=== PATIENT | female | born 1945 | race Two or more races ===

== ENCOUNTER 2017-11-07 09:04 | Inpatient (IN) | payer SELFPAY ==
[~2017-11-07] VITALS: Ht 154.9 cm; Wt 56.3 kg
[2017-11-07] MEDS ORDERED: ONDANSETRON HCL/PF 4 MG/2 ML VIAL IVP ONE (09:30)
[2017-11-07] MEDS ORDERED: IV NS 0.9% 1,000 ML BAG IV ONE (09:30)
[2017-11-07] MEDS ORDERED: ONDANSETRON HCL/PF 4 MG/2 ML VIAL ONE (09:30)
[2017-11-07 09:35] LABS: BASOPHILS % (AUTO) 0.1 % (0.0-2.0); EOSINOPHILS % (AUTO) 0.3 % (0.0-6.0); HEMATOCRIT 30 % (33-45); HEMOGLOBIN 9.8 g/dL (11.5-14.8); MEAN CORPUSCULAR HEMOGLOBIN 30 PG (26.0-33.0); MEAN CORPUSCULAR HGB CONC 33 g/dl (31.0-36.0); MEAN CORPUSCULAR VOLUME 93 fL (82-100); MONOCYTES # (AUTO) 0.3 /CMM (0.1-1.30); MONOCYTES % (AUTO) 3.9 % (2.0-12.0); NEUTROPHILS # (AUTO) 7.5 /CMM (1.8-8.9); NEUTROPHILS % (AUTO) 84.7 % (43.0-81.0); PLATELET COUNT (AUTO) 303 /CMM (150-450); RDW COEFFICIENT OF VARIATION 13.3 (11.5-15.0); RED BLOOD CELL COUNT(AUTO) 3.24 MIL/uL (4.0-5.2); WHITE BLOOD COUNT (AUTO) 8.8 K/uL (4.3-11.0)
[2017-11-07 09:42] LABS: CALCIUM, SERUM 8.6 mg/dL (8.5-10.1); CARBON DIOXIDE 22 mmol/L (21-32); CHLORIDE 108 mmol/L (98-107); CREATININE 3.1 mg/dL (0.6-1.3); GLUCOSE 223 mg/dL (74-106); POTASSIUM 4.2 mmol/L (3.5-5.1); SODIUM SERUM 138 mmol/L (136-145); UREA NITROGEN, BLOOD 48 mg/dL (7-18)
[2017-11-07 09:48] LABS: ALANINE AMINOTRANSFERASE 16 U/L (12-78); ALBUMIN 2.9 g/dL (3.4-5.0); ALKALINE PHOSPHATASE 82 U/L (46-116); ASPARTATE AMINOTRANSFERASE 15 U/L (15-37); BILIRUBIN,DIRECT 0.1 mg/dL (0.0-0.2); BILIRUBIN,TOTAL 0.3 mg/dL (0.2-1.0); TOTAL PROTEIN, SERUM 7.2 g/dL (6.4-8.2)
[2017-11-07 09:50] LABS: TROPONIN I < 0.017 ng/mL (0.00-0.056)
[2017-11-07 10:21] LABS: INR 0.9 (0.87-1.13)
[2017-11-07] MEDS ORDERED: INSU100V27 SQ (10:45)
[2017-11-07] MEDS ORDERED: CARV12.5 PO (10:45)
[2017-11-07] MEDS ORDERED: BLOO-668 IN (10:45)
[2017-11-07] MEDS ORDERED: ATOR10TA PO (10:45)
[2017-11-07] MEDS ORDERED: INSU100V7 SQ (10:45)
[2017-11-07] MEDS ORDERED: AMLO2.5T PO (10:45)
[2017-11-07] MEDS ORDERED: HYDROCODONE/APAP 5/325MG 1 EACH TABLET PO PRN (12:00)
[2017-11-07] MEDS ORDERED: TEMAZEPAM 15 MG CAPSULE PO PRN (12:00)
[2017-11-07] MEDS ORDERED: MORPHINE SULFATE INJ 2 MG/ML DISP.SYRIN IV PRN (12:00)
[2017-11-07] MEDS ORDERED: ONDANSETRON HCL/PF 4 MG/2 ML VIAL IVP PRN (12:00)
[2017-11-07] MEDS ORDERED: MAGNESIUM HYDROXIDE 30 ML UDC PO PRN (12:00)
[2017-11-07] MEDS ORDERED: MAG HYDROX/AL HYDROX/SIMETH 30 ML UDC PO PRN (12:00)
[2017-11-07] MEDS ORDERED: ACETAMINOPHEN 325 MG TABLET PO PRN (12:00)
[2017-11-07 12:13] VITALS: BP 151/77
[2017-11-07 12:14] VITALS: BP 151/77
[2017-11-07] MEDS: IV NS 0.9% 1,000 ML IV PRN (12:30)
[2017-11-07] MEDS: MECLIZINE HCL 12.5 MG TABLET PO PRN (13:33)
[2017-11-07] MEDS ORDERED: DEXTROSE 50%-WATER 50 ML DISP.SYRIN IV PRN (15:30)
[2017-11-07 16:00] VITALS: BP 139/68
[2017-11-07] MEDS: BLOOD SUGAR DIAGNOSTIC 1 EACH STRIP IN SCH ×2 (17:30→22:28)
[2017-11-07] MEDS: ASPIRIN EC 81 MG TABLET.DR PO SCH (17:33)
[2017-11-07] MEDS: INSULIN LISPRO/ASPART 100 UNIT/ML CARTRIDGE SQ SCH (17:35)
[2017-11-07] MEDS: INSULIN REGULAR, HUMAN 100 UNIT/ML 3 ML VIAL SQ PRN (17:41)
[2017-11-07] MEDS: ATORVASTATIN 10 MG TABLET PO SCH (17:42)
[2017-11-07 17:49] LABS: APPEARANCE,URINE CLEAR (CLEAR); BILIRUBIN,URINE NEGATIVE (NEGATIVE); BLOOD, URINE 1+ Ery/uL (NEGATIVE); COLOR,URINE YELLOW (YELLOW); KETONES,URINE NEGATIVE (NEGATIVE); LEUKOCYTE ESTERASE ,URINE NEGATIVE (NEGATIVE); NITRITE, URINE NEGATIVE (NEGATIVE); PROTEIN,URINE 3+ mg/dl (NEGATIVE); UGLUCOSE TRACE mg/dL (NEGATIVE); UROBILINOGEN,URINE 0.2 EU/dL (0.2)
[2017-11-07 17:53] LABS: BACTERIA,URINE Few /HPF (None Seen); SQUAMOUS EPITHELIAL CELL,UR Rare /HPF (None Seen); WBC,URINE 0-2 /HPF (0-3)
[2017-11-07 20:09] VITALS: BP 135/62
[2017-11-07] MEDS: INSULIN GLARGINE, 100 UNIT/ML CARTRIDGE SQ SCH (22:00)
[2017-11-07] MEDS: CARVEDILOL 12.5 MG TABLET PO SCH (22:28)
[2017-11-08] VITALS: BP 130/60
[2017-11-08 04:00] VITALS: BP 121/68
[2017-11-08] MEDS: IV NS 0.9% 1,000 ML IV PRN (04:32)
[2017-11-08 06:37] LABS: BASOPHILS % (AUTO) 0.3 % (0.0-2.0); EOSINOPHILS % (AUTO) 0.8 % (0.0-6.0); HEMATOCRIT 23 % (33-45); HEMOGLOBIN 7.6 g/dL (11.5-14.8); LYMPHOCYTES # (AUTO) 1.1 /CMM (0.8-4.8); LYMPHOCYTES % (AUTO) 14.4 % (20.0-44.0); MEAN CORPUSCULAR HEMOGLOBIN 31 PG (26.0-33.0); MEAN CORPUSCULAR HGB CONC 33 g/dl (31.0-36.0); MEAN CORPUSCULAR VOLUME 96 fL (82-100); MONOCYTES # (AUTO) 0.7 /CMM (0.1-1.30); MONOCYTES % (AUTO) 9.6 % (2.0-12.0); NEUTROPHILS # (AUTO) 5.8 /CMM (1.8-8.9); NEUTROPHILS % (AUTO) 74.9 % (43.0-81.0); PLATELET COUNT (AUTO) 215 /CMM (150-450); RDW COEFFICIENT OF VARIATION 14.4 (11.5-15.0); RED BLOOD CELL COUNT(AUTO) 2.43 MIL/uL (4.0-5.2); WHITE BLOOD COUNT (AUTO) 7.7 K/uL (4.3-11.0)
[2017-11-08 06:50] LABS: CALCIUM, SERUM 7.2 mg/dL (8.5-10.1); CARBON DIOXIDE 20 mmol/L (21-32); CHLORIDE 111 mmol/L (98-107); CREATININE 2.8 mg/dL (0.6-1.3); GLUCOSE 101 mg/dL (74-106); PHOSPHORUS 4.6 mg/dL (2.5-4.9); POTASSIUM 4.1 mmol/L (3.5-5.1); SODIUM SERUM 142 mmol/L (136-145); UREA NITROGEN, BLOOD 43 mg/dL (7-18)
[2017-11-08 07:07] LABS: CHOLESTEROL 174 mg/dL (<200); HDL CHOLESTEROL 47 mg/dL (40-60); LDL 99 mg/dL (0-99); THYROID STIMULATING HORMONE 1.514 uIU/mL (0.358-3.74); TRIGLYCERIDES 149 mg/dL (30-150)
[2017-11-08 08:00] VITALS: BP 150/65
[2017-11-08] MEDS: AMLODIPINE BESYLATE 2.5 MG TABLET PO SCH (08:18)
[2017-11-08] MEDS: BLOOD SUGAR DIAGNOSTIC 1 EACH STRIP IN SCH ×4 (08:19→21:47)
[2017-11-08] MEDS: CARVEDILOL 12.5 MG TABLET PO SCH ×2 (08:19→21:51)
[2017-11-08] MEDS: PANTOPRAZOLE 40 MG VIAL IV SCH (08:19)
[2017-11-08] MEDS: ASPIRIN EC 81 MG TABLET.DR PO SCH (08:24)
[2017-11-08] MEDS: INSULIN LISPRO/ASPART 100 UNIT/ML CARTRIDGE SQ SCH ×3 (08:24→17:25)
[2017-11-08] MEDS: MECLIZINE HCL 12.5 MG TABLET PO PRN (14:02)
[2017-11-08 16:00] VITALS: BP 131/64
[2017-11-08] MEDS: INSULIN REGULAR, HUMAN 100 UNIT/ML 3 ML VIAL SQ PRN ×2 (17:24→21:58)
[2017-11-08] MEDS: ATORVASTATIN 10 MG TABLET PO SCH (17:31)
[2017-11-08 20:00] VITALS: BP 140/63
[2017-11-08] MEDS: INSULIN GLARGINE, 100 UNIT/ML CARTRIDGE SQ SCH (22:03)
[2017-11-09 06:39] LABS: BASOPHILS % (AUTO) 0.3 % (0.0-2.0); EOSINOPHILS % (AUTO) 0.7 % (0.0-6.0); HEMATOCRIT 25 % (33-45); HEMOGLOBIN 7.9 g/dL (11.5-14.8); LYMPHOCYTES # (AUTO) 1.1 /CMM (0.8-4.8); LYMPHOCYTES % (AUTO) 13.7 % (20.0-44.0); MEAN CORPUSCULAR HEMOGLOBIN 30 PG (26.0-33.0); MEAN CORPUSCULAR HGB CONC 32 g/dl (31.0-36.0); MEAN CORPUSCULAR VOLUME 95 fL (82-100); MONOCYTES # (AUTO) 0.9 /CMM (0.1-1.30); MONOCYTES % (AUTO) 11.4 % (2.0-12.0); NEUTROPHILS # (AUTO) 5.9 /CMM (1.8-8.9); NEUTROPHILS % (AUTO) 73.9 % (43.0-81.0); PLATELET COUNT (AUTO) 245 /CMM (150-450); RDW COEFFICIENT OF VARIATION 13.9 (11.5-15.0); RED BLOOD CELL COUNT(AUTO) 2.61 MIL/uL (4.0-5.2); WHITE BLOOD COUNT (AUTO) 8.1 K/uL (4.3-11.0)
[2017-11-09] MEDS: BLOOD SUGAR DIAGNOSTIC 1 EACH STRIP IN SCH ×4 (07:02→21:32)
[2017-11-09 08:00] VITALS: BP 136/60
[2017-11-09] MEDS: PANTOPRAZOLE 40 MG VIAL IV SCH (08:29)
[2017-11-09] MEDS: CARVEDILOL 12.5 MG TABLET PO SCH ×2 (08:29→21:32)
[2017-11-09] MEDS: ASPIRIN EC 81 MG TABLET.DR PO SCH (08:30)
[2017-11-09] MEDS: AMLODIPINE BESYLATE 2.5 MG TABLET PO SCH (08:30)
[2017-11-09] MEDS: INSULIN REGULAR, HUMAN 100 UNIT/ML 3 ML VIAL SQ PRN ×4 (08:32→21:52)
[2017-11-09] MEDS: INSULIN LISPRO/ASPART 100 UNIT/ML CARTRIDGE SQ SCH ×3 (08:32→17:33)
[2017-11-09 16:00] VITALS: BP 151/58
[2017-11-09] MEDS: ATORVASTATIN 10 MG TABLET PO SCH (17:29)
[2017-11-09] MEDS: MECLIZINE HCL 12.5 MG TABLET PO PRN (17:36)
[2017-11-09 20:00] VITALS: BP 137/62
[2017-11-09 21:30] VITALS: BP 132/94
[2017-11-09] MEDS: INSULIN GLARGINE, 100 UNIT/ML CARTRIDGE SQ SCH (21:48)
[2017-11-10] MEDS: BLOOD SUGAR DIAGNOSTIC 1 EACH STRIP IN SCH ×2 (06:25→11:56)
[2017-11-10] MEDS: INSULIN REGULAR, HUMAN 100 UNIT/ML 3 ML VIAL SQ PRN ×2 (06:29→12:04)
[2017-11-10 08:00] VITALS: BP 138/71
[2017-11-10] MEDS: AMLODIPINE BESYLATE 2.5 MG TABLET PO SCH (09:14)
[2017-11-10] MEDS: CARVEDILOL 12.5 MG TABLET PO SCH (09:14)
[2017-11-10] MEDS: PANTOPRAZOLE 40 MG VIAL IV SCH (09:14)
[2017-11-10] MEDS: ASPIRIN EC 81 MG TABLET.DR PO SCH (09:14)
[2017-11-10] MEDS: INSULIN LISPRO/ASPART 100 UNIT/ML CARTRIDGE SQ SCH ×2 (09:19→12:03)
[2017-11-10 16:00] VITALS: BP 138/71
== END 2017-11-10 16:24 | disposition home or self-care (01) | DRG 73 ==
LOC: ER 09:05 → TELE 11:09 → MED 11-08 18:05
PROVIDERS: ADMIT Nurse Practitioner Acute Care; ATTEND Nurse Practitioner Acute Care
DX: G90.8 Other disorders of autonomic nervous system (principal); N17.0 Acute kidney failure with tubular necrosis; E44.0 Moderate protein-calorie malnutrition; Z68.1 Body mass index [BMI] 19.9 or less, adult; E44.1 Mild protein-calorie malnutrition; E11.22 Type 2 diabetes mellitus with diabetic chronic kidney disease; I12.9 Hypertensive chronic kidney disease with stage 1 through stage 4 chronic kidney disease, or unspecified chronic kidney disease; N18.9 Chronic kidney disease, unspecified; D63.8 Anemia in other chronic diseases classified elsewhere; I10 Essential (primary) hypertension; E11.65 Type 2 diabetes mellitus with hyperglycemia; Z79.4 Long term (current) use of insulin; Z86.73 Personal history of transient ischemic attack (TIA), and cerebral infarction without residual deficits; E78.5 Hyperlipidemia, unspecified; H91.93 Unspecified hearing loss, bilateral; I67.2 Cerebral atherosclerosis; K31.84 Gastroparesis; R42 Dizziness and giddiness
CPT/HCPCS: 36415; 70450-TC; 70551-TC; 71045-TC; 74018; 80048-TC; 80061-TC; 80076-TC; 81000-TC; 82962-TC; 83605-TC; 83735-TC; 84100-TC; 84443-TC; 84484-TC; 85025-TC; 85730-TC; 87040-TC; 87086-TC; 93307-TC; A4606; C9113; J1815; J2405; J7030; J8597; Z7610

== ENCOUNTER 2020-06-15 11:11 | Emergency (ER) | payer MEDICAID ==
[~2020-06-15] VITALS: Ht 162.6 cm; Wt 52.2 kg
[~2020-06-15 11:11] MED LIST: AMLO2.5T4 PO; ATOR10TA PO; BLOO-668 IN; CARV12.5 PO; INSU100V27 SQ; INSU100V7 SQ
--- NOTE | 2020-06-15 11:15 | NUR ---
PT BIBRA FROM HOME C/O R SIDED RIB AND HIP AREA PAIN. PER EMS REPORT, PATIENT WAS FOUND IN THE BATHROOM FLOOR, SHE WAS TRYING GTO URINATE AND FELL. NO HEAD INJURY ENDORSED. PT GOWNED AND PLACED ON MONITOR. AWAITING MD WALTERS.
--- NOTE | 2020-06-15 11:16 | NUR ---
DR LUNA AT BEDSIDE FOR EVAL.
--- NOTE | 2020-06-15 11:25 | NUR ---
PT TO RADIOLOGY FOR LUMBAR SPINE CT AND RIB XRAY VIA [facility].
[2020-06-15] MEDS: ACETAMINOPHEN ES 500 MG TABLET PO ONE ×2 (11:30→12:57)
[2020-06-15] MEDS ORDERED: ALLO100T PO (11:40)
[2020-06-15] MEDS ORDERED: CLON0.1T PO (11:40)
[2020-06-15] MEDS ORDERED: NIFE20CA PO (11:40)
[2020-06-15] MEDS ORDERED: SEVE800T8 PO (11:40)
[2020-06-15] MEDS ORDERED: FURO-144 PO (11:40)
--- NOTE | 2020-06-15 12:18 | NUR ---
PT TO RADIOLOGY FOR CT CHEST AND ABDOMEN VIA [facility].
[2020-06-15 12:48] LABS: BASOPHILS # (AUTO) 0.3 /CMM (0.0-0.2); BASOPHILS % (AUTO) 2.4 % (0.0-2.0); EOSINOPHILS % (AUTO) 1.8 % (0.0-6.0); HEMATOCRIT 32 % (33-45); HEMOGLOBIN 10.4 g/dL (11.5-14.8); LYMPHOCYTES # (AUTO) 0.5 /CMM (0.8-4.8); LYMPHOCYTES % (AUTO) 4.5 % (20.0-44.0); MEAN CORPUSCULAR HGB CONC 33 g/dl (31.0-36.0); MEAN CORPUSCULAR VOLUME 104 fL (82-100); MONOCYTES # (AUTO) 0.4 /CMM (0.1-1.30); MONOCYTES % (AUTO) 3.8 % (2.0-12.0); NEUTROPHILS # (AUTO) 9.1 /CMM (1.8-8.9); NEUTROPHILS % (AUTO) 87.5 % (43.0-81.0); PLATELET COUNT (AUTO) 275 /CMM (150-450); RED BLOOD CELL COUNT(AUTO) 3.04 MIL/uL (4.0-5.2); WHITE BLOOD COUNT (AUTO) 10.4 K/uL (4.3-11.0)
[2020-06-15] MEDS ORDERED: ACETAMINOPHEN ES 500 MG TABLET ONE (12:52)
--- NOTE | 2020-06-15 12:55 | NUR ---
FAMILY NOW OK TO GIVE PATIENT TYLENOL. ERMD AWARE.
--- NOTE | 2020-06-15 13:09 | NUR ---
CALLED DR. OLMSTEAD 626-ON [address] [place] Addendum: 06/15/20 at 1310 by [email or web address] [phone]
[2020-06-15] MEDS ORDERED: HYDR-3972 PO (13:17)
[2020-06-15 13:32] LABS: CALCIUM, SERUM 7.5 mg/dL (8.5-10.1); CARBON DIOXIDE 21 mmol/L (21-32); CHLORIDE 96 mmol/L (98-107); GLUCOSE 302 mg/dL (74-106); POTASSIUM 3.6 mmol/L (3.5-5.1); SODIUM SERUM 133 mmol/L (136-145); UREA NITROGEN, BLOOD 66 mg/dL (7-18)
[2020-06-15 13:36] LABS: CREATININE 8.1 mg/dL (0.6-1.3)
--- NOTE | 2020-06-15 13:41 | NUR ---
Note jessy in ED - 06/15/20 at 1344 by BENJAMIN Patient discharged to home in stable condition. Written and verbal after care instructions given. Patient verbalizes understanding of instruction.IV removed. Catheter intact and site benign. Pressure and 4x4 applied to site. No bleeding noted.
--- NOTE | 2020-06-15 13:44 | NUR ---
Patient discharged to home in stable condition. Written and verbal after care instructions given. Family verbalizes understanding of instruction.IV removed. Catheter intact and site benign. Pressure and 4x4 applied to site. No bleeding noted.
[2020-06-15 13:46] VITALS: BP 154/88
== END 2020-06-15 13:46 | disposition home or self-care (01) ==
LOC: ER 11:14
DX: S22.31XA Fracture of one rib, right side, initial encounter for closed fracture (principal); K66.8 Other specified disorders of peritoneum; I12.0 Hypertensive chronic kidney disease with stage 5 chronic kidney disease or end stage renal disease; N18.6 End stage renal disease; Z99.2 Dependence on renal dialysis; Z88.0 Allergy status to penicillin; Z79.899 Other long term (current) drug therapy; W18.39XA Other fall on same level, initial encounter; Y93.89 Activity, other specified; Y92.89 Other specified places as the place of occurrence of the external cause; Y99.8 Other external cause status
CPT/HCPCS: 36415; 71100-TC; 71250-TC; 72131-TC; 72170-TC; 80048-TC; 85025-TC; 85730-TC

== ENCOUNTER 2023-10-22 09:11 | Emergency (ER) | payer MEDICARE, OTHER ==
[~2023-10-22] VITALS: Ht 142.2 cm; Wt 46.7 kg
[~2023-10-22 09:11] MED LIST changes: +ALLO100T PO; -AMLO2.5T4 PO; -ATOR10TA PO; -CARV12.5 PO; +CLON0.1T PO; +FURO-144 PO; +HYDR-3972 PO; +NIFE20CA PO; +SEVE800T8 PO
[2023-10-22] MEDS: IV NS 0.9% 500 ML BAG IV ONE (09:56)
[2023-10-22 10:16] LABS: BASOPHILS % (AUTO) 0.7 % (0.0-2.0); EOSINOPHILS # (AUTO) 0.1 K/uL (0.0-0.7); EOSINOPHILS % (AUTO) 2.8 % (0.0-6.0); LYMPHOCYTES % (AUTO) 19.1 % (20.0-44.0); MEAN CORPUSCULAR HEMOGLOBIN 35 PG (26.0-33.0); MEAN CORPUSCULAR HGB CONC 32 g/dl (31.0-36.0); MEAN CORPUSCULAR VOLUME 110 fL (82-100); MONOCYTES # (AUTO) 0.5 K/uL (0.1-1.30); MONOCYTES % (AUTO) 9.4 % (2.0-12.0); NEUTROPHILS # (AUTO) 3.4 K/uL (1.8-8.9); PLATELET COUNT (AUTO) 159 K/uL (150-450); RED CELL DISTRIBUTION WIDTH 17.7 % (11.5-15.0)
[2023-10-22 10:29] LABS: ALANINE AMINOTRANSFERASE 34 U/L (12-78); ALBUMIN 2.6 g/dL (3.4-5.0); ALKALINE PHOSPHATASE 119 U/L (46-116); ASPARTATE AMINOTRANSFERASE 47 U/L (15-37); BILIRUBIN,DIRECT 0.1 mg/dL (0.0-0.2); BILIRUBIN,TOTAL 0.5 mg/dL (0.2-1.0); CALCIUM, SERUM 8.6 mg/dL (8.5-10.1); CARBON DIOXIDE 24 mmol/L (21-32); CHLORIDE 101 mmol/L (98-107); GLUCOSE 113 mg/dL (74-106); LIPASE 48 U/L (16-77); POTASSIUM 4.2 mmol/L (3.5-5.1); SODIUM SERUM 139 mmol/L (136-145); TOTAL PROTEIN, SERUM 7.4 g/dL (6.4-8.2); UREA NITROGEN, BLOOD 73 mg/dL (7-18)
[2023-10-22 10:32] LABS: CREATININE 14.5 mg/dL (0.6-1.3)
[2023-10-22 10:34] LABS: HEMATOCRIT 23 % (33-45); HEMOGLOBIN 7.4 g/dL (11.5-14.8)
[2023-10-22] MEDS ORDERED: METR500T PO (11:44)
[2023-10-22] MEDS ORDERED: CIPR-262 PO (11:44)
[2023-10-22 11:47] LABS: ANISOCYTOSIS 1+; BASOPHILS % (MANUAL) 0 % (0.0-2.0); EOSINOPHILS % (MANUAL) 1 % (0-4); LYMPHOCYTES % (MANUAL) 18 % (16-48); MONOCYTES % (MANUAL) 7 % (0-11.0); NEUTROPHILS % (MANUAL) 74 (42-76); PLATELET ESTIMATE ADEQUATE
[2023-10-22 12:54] VITALS: BP 189/91; TEMP 98.5; O2SAT 98
[2023-10-23] MEDS ORDERED: ASPI-1169 PO (08:35)
[2023-10-23] MEDS ORDERED: CEFD300C3 PO (08:35)
[2023-10-23] MEDS ORDERED: SEVE800T8 PO (08:35)
[2023-10-23] MEDS ORDERED: ATOR10TA PO (08:35)
[2023-10-23] MEDS ORDERED: LOSA25TA27 PO (08:35)
[2023-10-23] MEDS ORDERED: GENTAMICIN CREAM TP (08:35)
[2023-10-23] MEDS ORDERED: INSU100I14 SQ ×2 (08:35)
[2023-10-23] MEDS ORDERED: FOLI0.8T2 PO (08:35)
[2023-10-23] MEDS ORDERED: INSU100I4 SQ (08:35)
[2023-10-23] MEDS ORDERED: COLC0.6C3 PO (08:35)
[2023-10-23] MEDS ORDERED: ERGO500093 PO (08:35)
[2023-10-23] MEDS ORDERED: NIFE30TA2 PO (08:35)
[2023-10-23] MEDS ORDERED: LEVO75TA PO (08:35)
== END 2023-10-22 12:55 | disposition home or self-care (01) ==
LOC: ER 09:18
DX: K52.9 Noninfective gastroenteritis and colitis, unspecified (principal); Z88.0 Allergy status to penicillin; Z99.2 Dependence on renal dialysis
CPT/HCPCS: 99284; 74176; 93005; 85025; 80048; 83690; 80076; 36415; 85007; J7040

== ENCOUNTER 2023-10-22 23:08 | Inpatient (IN) | payer MEDICARE, OTHER ==
[~2023-10-22] VITALS: Ht 180.3 cm; Wt 53.3 kg
[~2023-10-22 23:08] MED LIST changes: +CIPR-262 PO; +METR500T PO
[2023-10-23] MEDS: CIPROFLOXACIN IV RTU 400 MG in PREMIX 1 EA IV SCH
[2023-10-23 00:10] LABS: BASOPHILS % (AUTO) 0.5 % (0.0-2.0); EOSINOPHILS # (AUTO) 0.1 K/uL (0.0-0.7); EOSINOPHILS % (AUTO) 1.8 % (0.0-6.0); HEMATOCRIT 30 % (33-45); LYMPHOCYTES # (AUTO) 0.9 K/uL (0.8-4.8); LYMPHOCYTES % (AUTO) 13.8 % (20.0-44.0); MEAN CORPUSCULAR HEMOGLOBIN 35 PG (26.0-33.0); MEAN CORPUSCULAR HGB CONC 33 g/dl (31.0-36.0); MEAN CORPUSCULAR VOLUME 107 fL (82-100); MONOCYTES # (AUTO) 0.5 K/uL (0.1-1.30); NEUTROPHILS % (AUTO) 75.9 % (43.0-81.0); PLATELET COUNT (AUTO) 206 K/uL (150-450); RED BLOOD CELL COUNT(AUTO) 2.83 MIL/uL (4.0-5.2); RED CELL DISTRIBUTION WIDTH 17.4 % (11.5-15.0); WHITE BLOOD COUNT (AUTO) 6.7 K/uL (4.3-11.0)
[2023-10-23 00:19] LABS: CALCIUM, SERUM 8.3 mg/dL (8.5-10.1); CARBON DIOXIDE 23 mmol/L (21-32); CHLORIDE 98 mmol/L (98-107); GLUCOSE 180 mg/dL (74-106); POTASSIUM 4.5 mmol/L (3.5-5.1); SODIUM SERUM 138 mmol/L (136-145); UREA NITROGEN, BLOOD 75 mg/dL (7-18)
[2023-10-23 00:20] LABS: CREATININE 15.3 mg/dL (0.6-1.3)
[2023-10-23 00:22] LABS: MAGNESIUM 1.8 mg/dL (1.8-2.4); PHOSPHORUS 5.5 mg/dL (2.5-4.9)
[2023-10-23] MEDS ORDERED: ONDANSETRON HCL/PF 4 MG/2 ML VIAL ONE ×2 (00:22→01:52)
[2023-10-23] MEDS ORDERED: METRONIDAZOLE 500MG/ NS 100ML 100 ML IV ONE (00:22)
[2023-10-23] MEDS ORDERED: CIPROFLOXACIN IV RTU 200 ML IV ONE (00:22)
[2023-10-23 00:27] LABS: ALANINE AMINOTRANSFERASE 38 U/L (12-78); ALBUMIN 2.6 g/dL (3.4-5.0); ALKALINE PHOSPHATASE 120 U/L (46-116); ASPARTATE AMINOTRANSFERASE 60 U/L (15-37); BILIRUBIN,DIRECT 0.1 mg/dL (0.0-0.2); BILIRUBIN,TOTAL 0.5 mg/dL (0.2-1.0); LIPASE 38 U/L (16-77); TOTAL PROTEIN, SERUM 7.4 g/dL (6.4-8.2)
[2023-10-23] MEDS: ONDANSETRON HCL/PF 4 MG/2 ML VIAL IVP ONE (00:28)
[2023-10-23] MEDS: FLAGYL/NS RTU 500 MG/100 ML PIGGYBACK IV ONE (00:29)
[2023-10-23] MEDS ORDERED: DEXTROSE 50%-WATER 50 ML DISP.SYRIN IV PRN (00:30)
[2023-10-23] MEDS ORDERED: MAG HYDROX/AL HYDROX/SIMETH 30 ML UDC PO PRN (00:30)
[2023-10-23] MEDS ORDERED: ONDANSETRON HCL/PF 4 MG/2 ML VIAL IVP PRN (00:30)
[2023-10-23] MEDS ORDERED: ACETAMINOPHEN 325 MG TABLET PO PRN (00:30)
[2023-10-23] MEDS ORDERED: CIPROFLOXACIN IV RTU 400 MG in PREMIX 1 EA IV SCH (00:30)
[2023-10-23] MEDS ORDERED: MAGNESIUM HYDROXIDE 30 ML UDC PO PRN (00:30)
[2023-10-23] MEDS: ONDANSETRON HCL/PF - ER 4 MG/2 ML VIAL IV ONE (01:57)
[2023-10-23] MEDS: hydrALAZINE HCL IV 20 MG VIAL IV PRN (03:52)
[2023-10-23 04:00] VITALS: BP 165/71; TEMP 98.1; O2SAT 98
[2023-10-23] MEDS: METOCLOPRAMIDE HCL 10 MG/2 ML VIAL IV PRN (05:59)
[2023-10-23] MEDS: BLOOD SUGAR DIAGNOSTIC 1 EACH STRIP IN SCH (07:49)
[2023-10-23] MEDS: INSULIN REGULAR, HUMAN 100 UNIT/ML 3 ML VIAL SQ PRN (07:50)
[2023-10-23 08:00] VITALS: BP 161/100; TEMP 98.5; O2SAT 97
[2023-10-23] MEDS ORDERED: [UNRECOGNIZED DRUG - MIXTURE] IV SCH (08:00)
[2023-10-23] MEDS ORDERED: METRONIDAZOLE 500MG/ NS 100ML 500 MG in PREMIX 1 EA IV SCH (08:00)
[2023-10-23] MEDS: SEVELAMER CARBONATE 800 MG TABLET PO SCH (08:20)
[2023-10-23] MEDS: METRONIDAZOLE 500MG/ NS 100ML 500 MG in PREMIX 1 EA IV SCH (08:20)
[2023-10-23] MEDS ORDERED: NIFE30TA2 PO (08:35)
[2023-10-23] MEDS ORDERED: ATOR10TA PO (08:35)
[2023-10-23] MEDS ORDERED: ERGO500093 PO (08:35)
[2023-10-23] MEDS ORDERED: LOSA25TA27 PO (08:35)
[2023-10-23] MEDS ORDERED: LEVO75TA PO (08:35)
[2023-10-23] MEDS ORDERED: SEVE800T8 PO (08:35)
[2023-10-23] MEDS ORDERED: COLC0.6C3 PO (08:35)
[2023-10-23] MEDS ORDERED: ASPI-1169 PO (08:35)
[2023-10-23] MEDS ORDERED: FOLI0.8T2 PO (08:35)
[2023-10-23] MEDS ORDERED: CEFD300C3 PO (08:35)
[2023-10-23] MEDS ORDERED: INSU100I4 SQ (08:35)
[2023-10-23] MEDS ORDERED: INSU100I14 SQ ×2 (08:35)
[2023-10-23] MEDS ORDERED: GENTAMICIN CREAM TP (08:35)
[2023-10-23] MEDS: NIFEdipine XL (30MG) 30 MG TAB PO SCH (08:59)
[2023-10-23] MEDS: POLYETHYLENE GLYCOL 3350 17 GM POWD.PACK PO ONE (08:59)
[2023-10-23] MEDS: FUROSEMIDE 40 MG TABLET PO SCH (08:59)
[2023-10-23] MEDS ORDERED: ALLOPURINOL 100 MG TABLET PO SCH (09:00)
[2023-10-23 12:00] VITALS: BP 192/89; TEMP 98.4; O2SAT 97
[2023-10-23] MEDS: CLONIDINE HCL 0.1 MG TABLET PO PRN (13:08)
[2023-10-23 16:00] VITALS: BP 124/66; TEMP 97.5; O2SAT 98
[2023-10-23] MEDS: HYDROCODONE/APAP 5/325MG TABLET PO PRN (16:58)
[2023-10-23 20:00] VITALS: BP 130/62; TEMP 97.9; O2SAT 99
[2023-10-24] VITALS: BP 138/66; TEMP 97.7; O2SAT 95
[2023-10-24 04:00] VITALS: BP 153/75; TEMP 98.1; O2SAT 97
[2023-10-24 07:02] LABS: BASOPHILS % (AUTO) 0.3 % (0.0-2.0); EOSINOPHILS # (AUTO) 0.1 K/uL (0.0-0.7); EOSINOPHILS % (AUTO) 1.7 % (0.0-6.0); HEMATOCRIT 27 % (33-45); LYMPHOCYTES # (AUTO) 0.6 K/uL (0.8-4.8); LYMPHOCYTES % (AUTO) 11.9 % (20.0-44.0); MEAN CORPUSCULAR HEMOGLOBIN 35 PG (26.0-33.0); MEAN CORPUSCULAR HGB CONC 33 g/dl (31.0-36.0); MEAN CORPUSCULAR VOLUME 106 fL (82-100); MONOCYTES # (AUTO) 0.6 K/uL (0.1-1.30); MONOCYTES % (AUTO) 12.4 % (2.0-12.0); NEUTROPHILS # (AUTO) 3.6 K/uL (1.8-8.9); NEUTROPHILS % (AUTO) 73.7 % (43.0-81.0); PLATELET COUNT (AUTO) 172 K/uL (150-450); RED BLOOD CELL COUNT(AUTO) 2.56 MIL/uL (4.0-5.2); RED CELL DISTRIBUTION WIDTH 17.4 % (11.5-15.0); WHITE BLOOD COUNT (AUTO) 4.9 K/uL (4.3-11.0)
[2023-10-24 07:39] LABS: CARBON DIOXIDE 23 mmol/L (21-32); CHLORIDE 98 mmol/L (98-107); GLUCOSE 185 mg/dL (74-106); MAGNESIUM 1.8 mg/dL (1.8-2.4); PHOSPHORUS 4.7 mg/dL (2.5-4.9); POTASSIUM 4.4 mmol/L (3.5-5.1); SODIUM SERUM 136 mmol/L (136-145); UREA NITROGEN, BLOOD 32 mg/dL (7-18)
[2023-10-24 07:46] LABS: CREATININE 8.1 mg/dL (0.6-1.3)
[2023-10-24 08:07] LABS: BASOPHILS % (MANUAL) 0 % (0.0-2.0); EOSINOPHILS % (MANUAL) 4 % (0-4); LYMPHOCYTES % (MANUAL) 13 % (16-48); MONOCYTES % (MANUAL) 10 % (0-11.0); NEUTROPHILS % (MANUAL) 73 (42-76)
[2023-10-24 08:08] LABS: PLATELET ESTIMATE ADEQUATE
[2023-10-24 10:50] VITALS: BP 155/63; TEMP 98.1; O2SAT 97
[2023-10-24 12:00] VITALS: BP 171/81; TEMP 98.6; O2SAT 97
[2023-10-24] MEDS ORDERED: PIPERACILLIN /TAZOBACTAM 2.25 G in IV D5W 50 ML IV SCH (14:00)
[2023-10-24 16:00] VITALS: BP 138/68; TEMP 98.6; O2SAT 98
[2023-10-24] MEDS: CLINDAMYCIN 600 MG in IV NS 0.9% 46 ML IV SCH (16:52)
[2023-10-24 20:00] VITALS: BP 166/76; TEMP 97.7; O2SAT 99
[2023-10-25] VITALS: BP 143/65; TEMP 98.1; O2SAT 99
[2023-10-25 04:00] VITALS: BP 140/72; TEMP 98.5; O2SAT 99
[2023-10-25 06:36] LABS: BASOPHILS % (AUTO) 0.3 % (0.0-2.0); EOSINOPHILS # (AUTO) 0.1 K/uL (0.0-0.7); EOSINOPHILS % (AUTO) 1.6 % (0.0-6.0); HEMATOCRIT 29 % (33-45); HEMOGLOBIN 9.4 g/dL (11.5-14.8); LYMPHOCYTES # (AUTO) 0.9 K/uL (0.8-4.8); LYMPHOCYTES % (AUTO) 14.7 % (20.0-44.0); MEAN CORPUSCULAR HEMOGLOBIN 35 PG (26.0-33.0); MEAN CORPUSCULAR HGB CONC 33 g/dl (31.0-36.0); MEAN CORPUSCULAR VOLUME 107 fL (82-100); MONOCYTES # (AUTO) 0.7 K/uL (0.1-1.30); MONOCYTES % (AUTO) 11.4 % (2.0-12.0); NEUTROPHILS # (AUTO) 4.6 K/uL (1.8-8.9); PLATELET COUNT (AUTO) 186 K/uL (150-450); RED BLOOD CELL COUNT(AUTO) 2.67 MIL/uL (4.0-5.2); WHITE BLOOD COUNT (AUTO) 6.4 K/uL (4.3-11.0)
[2023-10-25 06:52] LABS: MAGNESIUM 1.6 mg/dL (1.8-2.4); PHOSPHORUS 6.1 mg/dL (2.5-4.9)
[2023-10-25 08:00] VITALS: BP 134/69; TEMP 98.4; O2SAT 97
[2023-10-25 08:16] LABS: CALCIUM, SERUM 8.6 mg/dL (8.5-10.1); CARBON DIOXIDE 22 mmol/L (21-32); CHLORIDE 96 mmol/L (98-107); GLUCOSE 153 mg/dL (74-106); POTASSIUM 4.4 mmol/L (3.5-5.1); SODIUM SERUM 134 mmol/L (136-145); UREA NITROGEN, BLOOD 39 mg/dL (7-18)
[2023-10-25 08:17] LABS: CREATININE 9.9 mg/dL (0.6-1.3)
[2023-10-25 08:21] LABS: MAGNESIUM 1.8 mg/dL (1.8-2.4); PHOSPHORUS 6.2 mg/dL (2.5-4.9)
[2023-10-25 12:00] VITALS: BP 138/65; TEMP 98.2; O2SAT 98
[2023-10-25 16:00] VITALS: BP 153/72; TEMP 98.4; O2SAT 95
[2023-10-25 20:00] VITALS: BP 160/80; TEMP 98.1; O2SAT 98
[2023-10-26] VITALS: BP 149/77; TEMP 98.1; O2SAT 99
[2023-10-26 04:00] VITALS: BP 146/72; TEMP 98.1; O2SAT 97
[2023-10-26 08:00] VITALS: BP 165/78; TEMP 97.8; O2SAT 98
[2023-10-26 09:31] LABS: BASOPHILS % (AUTO) 0.3 % (0.0-2.0); EOSINOPHILS # (AUTO) 0.1 K/uL (0.0-0.7); EOSINOPHILS % (AUTO) 1.8 % (0.0-6.0); HEMATOCRIT 31 % (33-45); HEMOGLOBIN 10.2 g/dL (11.5-14.8); LYMPHOCYTES # (AUTO) 0.8 K/uL (0.8-4.8); MEAN CORPUSCULAR HEMOGLOBIN 35 PG (26.0-33.0); MEAN CORPUSCULAR HGB CONC 33 g/dl (31.0-36.0); MEAN CORPUSCULAR VOLUME 108 fL (82-100); MONOCYTES # (AUTO) 0.8 K/uL (0.1-1.30); MONOCYTES % (AUTO) 13.7 % (2.0-12.0); NEUTROPHILS # (AUTO) 4.1 K/uL (1.8-8.9); NEUTROPHILS % (AUTO) 70.2 % (43.0-81.0); PLATELET COUNT (AUTO) 208 K/uL (150-450); RED CELL DISTRIBUTION WIDTH 17.9 % (11.5-15.0); WHITE BLOOD COUNT (AUTO) 5.9 K/uL (4.3-11.0)
[2023-10-26 09:54] LABS: CALCIUM, SERUM 8.6 mg/dL (8.5-10.1); CARBON DIOXIDE 25 mmol/L (21-32); CHLORIDE 95 mmol/L (98-107); CREATININE 6.5 mg/dL (0.6-1.3); GLUCOSE 88 mg/dL (74-106); MAGNESIUM 1.8 mg/dL (1.8-2.4); PHOSPHORUS 5.5 mg/dL (2.5-4.9); POTASSIUM 3.7 mmol/L (3.5-5.1); SODIUM SERUM 137 mmol/L (136-145); UREA NITROGEN, BLOOD 22 mg/dL (7-18)
[2023-10-26 12:00] VITALS: BP 178/86; TEMP 97.9; O2SAT 97
[2023-10-26 16:00] VITALS: BP 150/76; TEMP 97.7; O2SAT 97
[2023-10-26 20:00] VITALS: BP 144/70; TEMP 98.1; O2SAT 98
[2023-10-27] VITALS: BP 138/66; TEMP 97.6; O2SAT 95
[2023-10-27 04:00] VITALS: BP 136/75; TEMP 98.3; O2SAT 96
[2023-10-27 07:52] LABS: BASOPHILS % (AUTO) 0.4 % (0.0-2.0); EOSINOPHILS # (AUTO) 0.1 K/uL (0.0-0.7); HEMATOCRIT 30 % (33-45); HEMOGLOBIN 9.9 g/dL (11.5-14.8); LYMPHOCYTES # (AUTO) 1.5 K/uL (0.8-4.8); LYMPHOCYTES % (AUTO) 19.7 % (20.0-44.0); MEAN CORPUSCULAR HEMOGLOBIN 36 PG (26.0-33.0); MEAN CORPUSCULAR HGB CONC 33 g/dl (31.0-36.0); MEAN CORPUSCULAR VOLUME 107 fL (82-100); MONOCYTES # (AUTO) 1.3 K/uL (0.1-1.30); MONOCYTES % (AUTO) 18.3 % (2.0-12.0); NEUTROPHILS # (AUTO) 4.4 K/uL (1.8-8.9); NEUTROPHILS % (AUTO) 59.6 % (43.0-81.0); PLATELET COUNT (AUTO) 195 K/uL (150-450); RED BLOOD CELL COUNT(AUTO) 2.79 MIL/uL (4.0-5.2); RED CELL DISTRIBUTION WIDTH 17.5 % (11.5-15.0); WHITE BLOOD COUNT (AUTO) 7.4 K/uL (4.3-11.0)
[2023-10-27 08:00] VITALS: BP 136/65; TEMP 98.4; O2SAT 97
[2023-10-27 08:14] LABS: CALCIUM, SERUM 8.7 mg/dL (8.5-10.1); CARBON DIOXIDE 23 mmol/L (21-32); CHLORIDE 97 mmol/L (98-107); GLUCOSE 131 mg/dL (74-106); MAGNESIUM 2.3 mg/dL (1.8-2.4); PHOSPHORUS 7.8 mg/dL (2.5-4.9); POTASSIUM 4.2 mmol/L (3.5-5.1); SODIUM SERUM 137 mmol/L (136-145); UREA NITROGEN, BLOOD 39 mg/dL (7-18)
[2023-10-27 08:22] LABS: CREATININE 8.2 mg/dL (0.6-1.3)
[2023-10-27 12:00] VITALS: BP 139/73; TEMP 98.2; O2SAT 99
[2023-10-27 16:00] VITALS: BP 130/66; TEMP 98.4; O2SAT 99
[2023-10-27 20:00] VITALS: BP 134/66; TEMP 98.4; O2SAT 99
[2023-10-28] VITALS: BP 140/76; TEMP 98.6; O2SAT 99
[2023-10-28 04:00] VITALS: BP 134/65; TEMP 98.3; O2SAT 99
[2023-10-28 06:48] LABS: BASOPHILS % (AUTO) 0.3 % (0.0-2.0); EOSINOPHILS # (AUTO) 0.1 K/uL (0.0-0.7); EOSINOPHILS % (AUTO) 1.6 % (0.0-6.0); HEMATOCRIT 29 % (33-45); HEMOGLOBIN 9.5 g/dL (11.5-14.8); LYMPHOCYTES # (AUTO) 1.4 K/uL (0.8-4.8); LYMPHOCYTES % (AUTO) 16.8 % (20.0-44.0); MEAN CORPUSCULAR HEMOGLOBIN 35 PG (26.0-33.0); MEAN CORPUSCULAR HGB CONC 33 g/dl (31.0-36.0); MEAN CORPUSCULAR VOLUME 107 fL (82-100); MONOCYTES # (AUTO) 1.3 K/uL (0.1-1.30); MONOCYTES % (AUTO) 15.9 % (2.0-12.0); NEUTROPHILS # (AUTO) 5.3 K/uL (1.8-8.9); NEUTROPHILS % (AUTO) 65.4 % (43.0-81.0); PLATELET COUNT (AUTO) 196 K/uL (150-450); RED BLOOD CELL COUNT(AUTO) 2.68 MIL/uL (4.0-5.2); WHITE BLOOD COUNT (AUTO) 8.2 K/uL (4.3-11.0)
[2023-10-28 06:58] LABS: CARBON DIOXIDE 20 mmol/L (21-32); CHLORIDE 97 mmol/L (98-107); GLUCOSE 168 mg/dL (74-106); MAGNESIUM 2.4 mg/dL (1.8-2.4); PHOSPHORUS 7.9 mg/dL (2.5-4.9); POTASSIUM 4.5 mmol/L (3.5-5.1); SODIUM SERUM 137 mmol/L (136-145); UREA NITROGEN, BLOOD 48 mg/dL (7-18)
[2023-10-28 06:59] LABS: CREATININE 9.5 mg/dL (0.6-1.3)
[2023-10-28 07:16] LABS: IRON, SERUM 45 ug/dl (50-175); TOTAL IRON BINDING CAPACITY 149 ug/dl (250-450)
[2023-10-28 07:25] LABS: FERRITIN 875 ng/mL (8-388)
[2023-10-28 08:00] VITALS: BP 148/69; TEMP 98.2; O2SAT 93
[2023-10-28 09:06] LABS: ANISOCYTOSIS 1+; BASOPHILS % (MANUAL) 0 % (0.0-2.0); EOSINOPHILS % (MANUAL) 3 % (0-4); LYMPHOCYTES % (MANUAL) 19 % (16-48); MONOCYTES % (MANUAL) 14 % (0-11.0); NEUTROPHILS % (MANUAL) 64 (42-76); PLATELET ESTIMATE ADEQUATE
[2023-10-28] MEDS ORDERED: CLIN300C3 PO (11:03)
[2023-10-28 12:00] VITALS: BP 155/70; TEMP 98; O2SAT 93
[2023-10-28 16:00] VITALS: BP 155/70; TEMP 98; O2SAT 94
[2023-10-28 20:00] VITALS: BP 148/75; TEMP 98.8; O2SAT 98
[2023-10-28] MEDS: CLINDAMYCIN HCL 150 MG CAPSULE PO SCH (21:07)
[2023-10-28 23:06] LABS: HEPATITIS Be AB Reactive (Negative)
[2023-10-29 00:17] VITALS: BP 139/76; TEMP 98.4; O2SAT 100
[2023-10-29 04:00] VITALS: BP 142/67; TEMP 98.1; O2SAT 99
[2023-10-29 08:00] VITALS: BP 140/72; TEMP 98.2; O2SAT 97
[2023-10-29 08:17] VITALS: BP 140/72
[2023-11-01 03:12] LABS: HEPATITIS B CORE AB, IgM Negative (Negative); HEPATITIS B CORE AB, TOTAL Positive (Negative); HEPATITIS Be AG Negative (Negative)
== END 2023-10-29 14:57 | disposition home health service (06) | DRG 391 ==
LOC: ER 23:24 → TELE1 10-23 01:01
PROVIDERS: ADMIT Student in an Organized Health Care Education/Training Program; ATTEND Student in an Organized Health Care Education/Training Program
PROC: 5A1D70Z Performance of Urinary Filtration, Intermittent, Less than 6 Hours Per Day (ICD-10-PCS; principal; 2023-10-23)
PROC: 05HM33Z Insertion of Infusion Device into Right Internal Jugular Vein, Percutaneous Approach (ICD-10-PCS; 2023-10-23)
PROC: B543ZZA Ultrasonography of Right Jugular Veins, Guidance (ICD-10-PCS; 2023-10-23)
DX: A09 Infectious gastroenteritis and colitis, unspecified (principal); N18.6 End stage renal disease; N20.2 Calculus of kidney with calculus of ureter; E44.0 Moderate protein-calorie malnutrition; E87.1 Hypo-osmolality and hyponatremia; I13.2 Hypertensive heart and chronic kidney disease with heart failure and with stage 5 chronic kidney disease, or end stage renal disease; M48.55XA Collapsed vertebra, not elsewhere classified, thoracolumbar region, initial encounter for fracture; I50.9 Heart failure, unspecified; Z88.0 Allergy status to penicillin; Z79.4 Long term (current) use of insulin; Z79.899 Other long term (current) drug therapy; M89.8X9 Other specified disorders of bone, unspecified site; Z86.73 Personal history of transient ischemic attack (TIA), and cerebral infarction without residual deficits; Z99.2 Dependence on renal dialysis; E11.22 Type 2 diabetes mellitus with diabetic chronic kidney disease; E03.9 Hypothyroidism, unspecified; D64.9 Anemia, unspecified; E78.5 Hyperlipidemia, unspecified; E83.42 Hypomagnesemia; E88.09 Other disorders of plasma-protein metabolism, not elsewhere classified; N26.1 Atrophy of kidney (terminal)
CPT/HCPCS: 36415; 71045-TC; 76770-TC; 80048-TC; 80076-TC; 82607-TC; 82728-TC; 82962-TC; 83540-TC; 83690-TC; 83735-TC; 84100-TC; 85025-TC; 85045-TC; 86704; 86705; 86707; 87350; 90935-TC; 97110-TC; 97116-TC; 97530-TC; A4216; A4223; G0378; J0360; J0744; J1815; J2405; J2765; J3490; J7030; J7050